=== PATIENT | female | born 1930 | race Caucasian/White ===

== ENCOUNTER → 2017-04-30 | Outpatient (CLI) | payer OTHER ==
[~2017-04-30] MED LIST: ACETAMINOPHEN500 M6 PO; ALBUTEROL MININEB NEB; ALBUTEROL17 GM INH; ALLEGRA ALLERG180 MG PO; ALLEGRA PO; ANTIVERT PO; ASPIRIN PO; ASPIRIN81 M1 PO; ASPIRIN81 M2 PO; ASPIRIN81 MG PO; BACTRIM DS TABL1 TA1 PO; BENADRYL25 M3 PO; BENICAR HCT 40-1 TAB PO; CARDIZEM CD PO; CARDIZEM CD300 M1 PO; CARDIZEM CD300 MG PO; CARTIA XT PO; CARTIA XT240 MG PO; CEFTIN500 MG PO; CELEXA20 M1 PO; CELEXA20 MG PO; CIPRO PO; CITALOPRAM HBR10 MG PO; CLARITIN10 M2 PO; CLARITIN10 M3 PO; COMBIVENT MININEB INH; CRESTOR5 MG PO; DDAVP0.2 M1 PO; DESMOPRESSIN A0.2 MG PO; EVISTA60 M1 PO; EVISTA60 MG PO; FAMOTIDINE PO; FERROUS GLUCON324 MG PO; FLONASE 0.05% N16 G1; FLONASE ALLERG9.9 ML; FLONASE16 GM; FLORASTOR250 M1 PO; FUROSEMIDE40 MG PO; GUAIFENESIN LA600 M1 PO; GUAIFENESIN600 MG PO; HCTZ PO; HYDROCODONE-APA1 T61 PO; IBUPROFEN PO; IPRATR-ALBUTEROL3 ML INH; IRON325 ( 652 PO; K-DUR10 MEQ PO; KCL 10MEQ/10 MEQ/100 PO; KCL PO; LASIX20 MG PO; LIDODERM30 EA TOP; LIPITOR PO; LOPRESSOR PO; LORTAB 5-325 M1 EACH PO; MACROBID100 M1 PO; MIRALAX17 GM PO; PAIN MED; PERCOCET 5-3251 TAB PO; PERCOCET5/325; PERFOROMIS20 MCG/2 M INH; PHENERGAN25 M1 PO; PHENERGAN25 MG PO; POTASSIUM CHLO10 ME1 PO; PROTONIX PO; PULMICORT0.5 MG/2 M INH; PYRIDIUM PO; REGLAN10 MG; SINGULAIR PO; STAHIST TA1 TAB.SR . PO; VESICARE PO; VESICARE5 MG PO; VITAMIN B-1000 MCG/1 INJ; XARELTO20 MG PO; ZANTAC PO; ZANTAC150 M1 PO; ZANTAC150 MG PO; ZOFRAN ODT4 MG PO; [UNRECOGNIZED DRUG - OTHER]
--- NOTE | ~2017-04-30 | MY11 ---
[facility] A Service of [facility] RADIOLOGY TEXT RESULTS PATIENT: KALEY MONTIEL LOCATION: [facility] : 32 UNIT #: [id number] AGE: [address]: Jonathan Carlson MD SEX: F ORDER DR: [id number] [address] [id number] MR#: [id number] Acc #: [id number] NAME: KALEY MONTIEL : 1930 SEX: F STUDY DATE/TIME: 04/30/2017 13:31 UNIT: [facility] ROOM: STUDY DESCRIPTION: MY Mammogram Screening Dig [facility]hen Attending Physician: Jonathan Carlson M.D. Referring Physician: Jonathan Carlson M.D. Ordering Physician: Jonathan Carlson M.D. Primary Care Physician: Jonathan Carlson M.D. MEDICAL IMAGING REPORT This report is preliminary unless electronic signature is present. EXAM Digital screening mammogram 04/30/2017 HISTORY 86-year-old woman, no risk elevation. Annual screen. COMPARISON STUDIES Comparison mammograms date to 07/13/2008 with most recent 10/25/2015. FINDINGS Digital imaging of each breast was completed utilizing screening protocol. Review includes FDA-approved CAD device. Breast parenchyma is partially fatty replaced. Subareolar duct prominence and residual parenchymal density stable in both subareolar locations. Moderate vascular calcification is also noted. I see no suspicious mass. There are no interval occurring microcalcifications and no architectural deformity. IMPRESSION Benign mammogram. Annual screening is optional at this age. BIRADS II Patients over the age of 40 are entered into a reminder system with target due date for the next mammogram. A result letter will also be sent to the patient. BIRADS: 2 - Benign finding Dictated by... Anthony Waldrop M.D. THIS IS AN ELECTRONICALLY VERIFIED REPORT nAthony Waldrop M.D. at 04/30/2017 3:57 PM KAILA/diana [facility] A Service of [facility] RADIOLOGY TEXT RESULTS PATIENT: KALEY MONTIEL LOCATION: [facility] : 32 UNIT #: [id number] AGE: [address]: Jonathan Carlson MD SEX: F ORDER DR: TD: 04/30/2017 15:55 JOB #: [id number] MEDICAL IMAGING REPORT Page 1 of 1
== END | disposition home or self-care (01) ==
LOC: SMAM 12:14
DX: Z12.31 Encounter for screening mammogram for malignant neoplasm of breast (principal)
CPT/HCPCS: G0202